=== PATIENT | female | born 1965 | race Caucasian/White ===

== ENCOUNTER 2019-07-10 07:57 | Emergency (ER) | payer OTHER ==
--- NOTE | 2019-07-10 09:04 | ER Document Report ---
ED General - General Chief Complaint: Facial Swelling Stated Complaint: FACIAL SWELLING Time Seen by Provider: 07/10/19 09:04 Mode of Arrival: Ambulatory Information source: Patient TRAVEL OUTSIDE OF THE [place] IN LAST 30 DAYS: No - HPI Onset: This morning Onset/Duration: Sudden Quality of pain: No pain Severity: Moderate Pain Level: Denies Associated symptoms: Other - swelling of upper lip and mild swelling under each eye (left greater then right) Exacerbated by: Denies Relieved by: Other - patient thinks she is slightly better after taking benadryl this morning Similar symptoms previously: No Recently seen / treated by doctor: No Notes: 54 year old female with history of HTN who takes Lisinopril here for sudden onset of facial swelling (upper lip and below both eyes) which started this morning. The patient has not eaten today but she had steak, vegetable, salad, and fruit last night. The patient has never had a reaction like this before. The patient took some benadryl this morning which seems to have helped with the swelling under her right eye but not with swelling under her left eye or upper lip. The patient denies recent insect bites. Past Medical History - General Information source: Patient - Social History Smoking Status: Never Smoker Frequency of alcohol use: Occasional Drug Abuse: None Lives with: Alone, Family Family History: Reviewed & Not Pertinent Patient has suicidal ideation: No Patient has homicidal ideation: No - Past Medical History Cardiac Medical History: Reports: Hx Hypertension Pulmonary Medical History: Reports: None EENT Medical History: Reports: None Neurological Medical History: Reports: None Endocrine Medical History: Reports: Hx Diabetes Mellitus Type 2 Renal/ Medical History: Reports: None Malignancy Medical History: Reports: None GI Medical History: Reports: None Musculoskeletal Medical History: Reports None Skin Medical History: Reports None Psychiatric Medical History: Reports: None Traumatic Medical History: Reports: None Infectious Medical History: Reports: None Review of Systems - Review of Systems Constitutional: No symptoms reported EENT: Other - upper lip swelling, swelling under both eyes. denies: Throat pain, Difficulty swallowing, Throat swelling Cardiovascular: No symptoms reported Respiratory: No symptoms reported Gastrointestinal: No symptoms reported Genitourinary: No symptoms reported Female Genitourinary: No symptoms reported Musculoskeletal: No symptoms reported Skin: No symptoms reported Hematologic/Lymphatic: No symptoms reported Neurological/Psychological: No symptoms reported Physical Exam - Vital signs Vitals: Temp Pulse Resp BP Pulse Ox 99.6 F 126 H 18 142/92 H 99 07/10/19 08:16 07/10/19 08:16 07/10/19 08:16 07/10/19 08:16 07/10/19 08:16 - Notes Notes: GENERAL: Well-appearing, well-nourished and in no acute distress. HEAD: Atraumatic, normocephalic. EYES: Mild swelling under left eye. No swelling under right eye. Pupils equal round and reactive to light, extraocular movements intact, sclera anicteric, conjunctiva are normal. ENT: Swelling of upper lip. TMs normal, nares patent, oropharynx clear without exudates. Moist mucous membranes. No swelling of structures in mouth. NECK: Normal range of motion, supple without lymphadenopathy or JVD. LUNGS: Breath sounds clear to auscultation bilaterally and equal. No wheezes rales or rhonchi. HEART: Regular rate and rhythm without murmurs, rubs or gallops. ABDOMEN: Soft, nontender, normoactive bowel sounds. No guarding, no rebound. No masses appreciated. EXTREMITIES: Normal range of motion, no pitting or edema. No clubbing or cyanosis. NEUROLOGICAL: Cranial nerves II through XII grossly intact. Normal speech, normal gait. PSYCH: Normal mood, normal affect. SKIN: Warm, Dry, normal turgor, no rashes or lesions noted. Course - Re-evaluation Re-evalutation: 07/10/19 10:06 The patient has left sided facial swelling. Initially it was thought she could be having angioedema from an ACEi but she was noted to have some swelling under her left eye on exam. Patient was then asked if she had any dental pain and she told me infact she has had pain in a tooth right over where the swelling is the worse in her left upper lip. The patient has also been having some pain in the sinus in the same area. Patient did not have much relief of swelling with an H1 or H2 olvin so an allergic reaction seems unlikely. Will prescribe patient Augmentin for likely dental infection but will have patient stop Lisinopril for good if the swelling worsens after taking the next dose of Lisinopril - Vital Signs Vital signs: Temp Pulse Resp BP Pulse Ox 99.6 F 126 H 18 142/92 H 99 07/10/19 08:16 07/10/19 08:16 07/10/19 08:16 07/10/19 08:16 07/10/19 08:16 Discharge - Discharge Clinical Impression: Dental infection Condition: Stable Disposition: HOME, SELF-CARE Instructions: Dental Infection or Abscess ([facility]) Additional Instructions: Take Augmentin as prescribed twice a day and follow up with a Dentist. Use Tylenol and Motrin for pain. Use Benadryl for itchiness/swelling. If you swell up worse again after taking Lisinopril stop taking this and follow up with your primary care doctor. Return to an ER for throat swelling, trouble breathing, or if you are worse. Prescriptions: Amoxicillin/Potassium Clav [Augmentin Xr 1,000-62.5 Tab] 1 each PO BID 10 Days #20 [id number]
[2019-07-10] MEDS ORDERED: FAMOTIDINE INJ/PF 20 MG/2 ML SDV IV ONE (09:10)
[2019-07-10] MEDS ORDERED: DIPHENHYDRAMINE HCL 50 MG/ML VIAL IV ONE (09:10)
[2019-07-10] MEDS ORDERED: METHYLPREDNISOLONE INJ 125 MG/2 ML SDV IV ONE (09:10)
[2019-07-10] MEDS ORDERED: KETOROLAC TROMETHAMINE 10 MG TABLET PO ONE (10:11)
[2019-07-10 10:50] VITALS: BP 139/88
== END 2019-07-10 10:50 | disposition home or self-care (01) ==
LOC: ER 07:57
DX: K04.7 Periapical abscess without sinus (principal); R22.0 Localized swelling, mass and lump, head; I10 Essential (primary) hypertension; Z79.899 Other long term (current) drug therapy; E11.9 Type 2 diabetes mellitus without complications
CPT/HCPCS: 99283; 96374; 96375; J1200; J3490; S0028